=== PATIENT | male | born 1945 | race Caucasian/White ===

== ENCOUNTER → 2024-10-19 | Outpatient (CLI) | payer MEDICARE, BC, SELFPAY ==
--- NOTE | 2024-10-19 | XR_ITS ---
Examination: PA lateral chest 2 views TECHNIQUE: Upright PA lateral chest 2 views Exam date and time: October 19, 2024 0810 hours Comparison 07/21/2024 INDICATIONS: History nodular parenchymal disease left lower lobe FINDINGS: Pleural-parenchymal disease stable left base Normal heart size No interval pneumonia or pulmonary edema IMPRESSION: Stable pleural parenchymal scarring left base
== END | disposition home or self-care (01) ==
PROVIDERS: PCP Internal Medicine; Referring Provider Internal Medicine; Visit Provider Internal Medicine
DX: R91.8 Other nonspecific abnormal finding of lung field (principal)
CPT/HCPCS: 71046